=== PATIENT | female | born 1980 | race Caucasian/White ===

== ENCOUNTER 2017-08-01 12:34 | Emergency (ER) | END 2017-08-01 16:18 | disposition home or self-care (01) ==

== ENCOUNTER 2019-02-12 10:31 | Emergency (ER) | payer MEDICAID ==
[~2019-02-12] VITALS: Wt 61.4 kg
[~2019-02-12 10:31] MED LIST: ACET-818 PO; ACET500C5 PO; AMOX1TAB10 PO; DEXL30CA2 PO; DOXY-214 PO; DOXY100T34 PO; FAMO-96 PO; IBUP-1542 PO; MAG-19 PO; MED4DP PO; NAPR-985 PO; NEOM28OI TOP; ONDA4TAB14 PO
[2019-02-12 10:34] VITALS: BP 123/60; PULSE 70; RESP 20
[2019-02-12] MEDS ORDERED: DIPHTH/TET/ACEL PERTUSS (ADULT) 0.5 ML VIAL IM* ONE (11:00)
== END 2019-02-12 11:11 | disposition home or self-care (01) ==
LOC: FTE 10:31
DX: R51 Headache (principal); F17.210 Nicotine dependence, cigarettes, uncomplicated; Z23 Encounter for immunization
CPT/HCPCS: 90471; 90715; Z7502